=== PATIENT | male | born 1950 | race African-American/Black ===

== ENCOUNTER 2017-01-15 08:43 | Emergency (ER) | payer BC, MEDICARE ==
[~2017-01-15 08:43] MED LIST: BENICAR HCT1 TA2 PO; CARDURA8 MG PO; CYANO1000T PO; KLOR-CON 1010 MEQ PO; LORT7 PO; NEXIUM40 PO; NORV10 PO; PR25 PO; RHINOAQ NAS; VITE PO; ZANAFLEX 4 MG TA4 MG PO
== END 2017-01-15 09:22 | disposition home or self-care (01) ==
LOC: ER 08:43
DX: R05 Cough (principal); T78.40XA Allergy, unspecified, initial encounter; I10 Essential (primary) hypertension; K21.9 Gastro-esophageal reflux disease without esophagitis; F17.200 Nicotine dependence, unspecified, uncomplicated; Z79.899 Other long term (current) drug therapy
CPT/HCPCS: 96372; 99283

== ENCOUNTER 2017-01-31 14:10 | Emergency (ER) | payer BC, MEDICARE ==
[2017-01-31 16:47] LABS: BASOPHILS 0.2 %; BASOPHILS ABSOLUTE 0.01 10/3/uL (0.0-0.16); EOSINOPHILS 0.3 %; EOSINOPHILS ABSOLUTE 0.02 10/3/uL (0.0-0.53); IMMATURE GRANULOCYTES 0.2 %; IMMATURE GRANULOCYTES ABSOLUTE 0.01 10/3/uL (0.0-0.11); LYMPHOCYTES 10.7 %; LYMPHOCYTES ABSOLUTE 0.66 10/3/uL (0.67-4.30); MEAN CORPUS HGB CONC 33.4 g/dL (32.0-36.0); MEAN CORPUSCULAR HEMOGLOB 28.7 pg (26.0-34.0); MEAN CORPUSCULAR VOLUME 85.9 fL (80-100); MEAN PLATELET VOLUME 10.5 fL (9.2-13.0); MONOCYTES 17.2 %; MONOCYTES ABSOLUTE 1.06 10/3/uL (0.21-1.20); NEUTROPHILS 71.4 %; NEUTROPHILS ABSOLUTE 4.39 10/3/uL (2.02-8.40); PLATELET COUNT 171 10/3/uL (150-400); RBC DISTRIBUTION WIDTH 14.6 % (12.0-16.0); WHITE BLOOD CELLS 6.2 10/3/uL (4.5-10.5)
[2017-01-31 16:49] LABS: HEMOGLOBIN 13.8 g/dL (13.6-17.8); RED CELL COUNT 4.81 10/6/uL (4.7-6.1)
[2017-01-31 16:50] LABS: HEMATOCRIT 41.3 % (40.0-51.0); MANUAL DIFF NO %
[2017-01-31 16:53] LABS: INTERNATIONAL NORMAL RATI 1.1 UNITS (-); PARTIAL THROMBO TIME 27.8 SEC (22.5-37.2); PROTIME (NOT ORD) 13.6 SEC (12.0-14.5)
[2017-01-31 17:02] LABS: CALCIUM, SERUM 8.7 MG/DL (8.5-10.4); CHEST PAIN PROFILE TAT 0 Hrs 19 Mins; CHLORIDE, SERUM 100 MMOL/L (96-112); CO2 (CARBON DIOXIDE) 32 MMOL/L (24-34); CREATININE 1.01 MG/DL (0.70-1.30); GFR AFRICAN AMERICAN 90 ML/MIN (>=60); GFR NON AFRICAN AMERICAN 78 ML/MIN (>=60); GLUCOSE, SERUM 88 MG/DL (60-99); POTASSIUM, SERUM 3.8 MMOL/L (3.5-5.3); SODIUM, SERUM 141 MMOL/L (135-148); TROPONIN I <0.02 NG/ML (<0.05)
[2017-01-31 17:05] LABS: BUN (BLOOD UREA NITROGEN) 12 MG/DL (6-23)
== END 2017-01-31 19:40 | disposition left against medical advice (07) ==
LOC: ER 14:10
PROVIDERS: Emergency Medicine
DX: Z53.21 Procedure and treatment not carried out due to patient leaving prior to being seen by health care provider (principal)
CPT/HCPCS: 71020; 80048; 83735; 83880; 84484; 85025; 85610; 85730; 93005